=== PATIENT | male | born 2000 | race Caucasian/White ===

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

== ENCOUNTER 2023-04-11 01:45 | Emergency (ER) | payer MEDICAID, SELFPAY ==
--- NOTE | 2023-04-11 01:46 | XRR_ITS ---
PROCEDURE INFORMATION: Exam: XR Right Wrist Exam date and time: 04/11/2023 12:56 AM Age: 23 years old Clinical indication: Injury or trauma; Fall; Crushing; Wrist; Right TECHNIQUE: Imaging protocol: Radiologic exam of the right wrist. Views: 3 or more views. COMPARISON: No relevant prior studies available. FINDINGS: Bones/joints: Normal. Soft tissues: Normal. XR/XR wrist RT min 3V* [id number] IMPRESSION: No acute findings.
[2023-04-11 01:52] VITALS: BMI 50.2
[2023-04-11 01:53] VITALS: BP 203/112; PULSE 84; RESP 16; TEMP 36.6; O2SAT 98
--- NOTE | 2023-04-11 02:07 | ED_ITS ---
HPI - Extremity Problem General: Chief complaint: Extremity Problem,Nontraumatic Stated complaint: Right wrist injury Time Seen by Provider: 04/11/23 01:47 History of Present Illness: 23-year-old male patient comes in today for injury to the right wrist. Patient reports that he was running yesterday and tripped and fell catching himself outstretched arms. Patient had fractured his left wrist before it was a similar incident and was concerned he might have broken his right wrist. Patient has used a elastic wrap with some mild relief but the pain was worse tonight. Patient appears nontoxic. Patient appears in no acute distress. Review of Systems General: Reports: 10 or more systems reviewed and unremarkable except in HPI and below Musc: Reports: extremity pain PFSH ED PFSH: Social History (Updated 12/12/19 @ 09:59 by Tenisha Nelson LPN) Smoking and tobacco status: never smoked Alcohol intake: never Substance/Drug Use: never Physical Exam Const: COMMON NORMALS: alert HENMT: COMMON NORMALS: normocephalic HEAD & SCALP: normocephalic Neck/C-Spine: COMMON NORMALS: full ROM Resp: COMMON NORMALS: normal respiratory effort Cardio: COMMON NORMALS: regular rate RATE: regular rate Back/Pelvis: COMMON NORMALS: thoracic and lumbar spine normal to inspection Extremity: RIGHT UPPER EXTREMITY: Yes wrist (Mild joint line tenderness) Right wrist: Yes inspection and Yes palpation Neuro: SENSORIUM/ORIENTATION: Yes alert Skin: COMMON NORMALS: turgor normal GENERAL SKIN EXAM: turgor normal Course Vital Signs: Vital signs: Vital Signs Temperature 97.9 F 04/11/23 01:53 Pulse Rate 84 04/11/23 01:53 Respiratory Rate 16 04/11/23 01:53 Blood Pressure 203/112 04/11/23 01:53 Pulse Oximetry 98 04/11/23 01:53 Oxygen Delivery Me thod Room Air 04/11/23 01:53 MDM - Extremity (Nontraumatic) Medical Decision Making 23-year-old male patient comes in today with injury to the right wrist. On exam patient has joint line tenderness. Minimal to no swelling is noted. Distal cap refill is intact. Distal sensation is intact. Differential diagnosis includes but not limited to fracture, sprain, contusion. X-ray notes no abnormality. Reviewed exam with patient with recommendations for treatment and follow-up. Patient reported understanding and agreed to plan. Also discussed with patient his elevated blood pressure recommended follow-up with primary care in 1 week for recheck of blood pressure. Patient reports that normally his blood pressure is more in the normal range in the 130s to 140s. Patient has no other symptoms such as chest pain, shortness of breath, or other significant abnormalities to suggest further need of work-up at this time. Patient reported understanding of care plan and need for follow-up. Discharge Plan Discharge Patient Disposition: Home Clinical Impression: Right wrist sprain Qualifiers: Encounter type: initial encounter Qualified Code(s): S63.501A - Unspecified sprain of right wrist, initial encounter Ulnar nerve compression Qualifiers: Laterality: right Qualified Code(s): G56.21 - Lesion of ulnar nerve, right upper limb Condition: Stable Prescriptions: New ketorolac 10 mg tablet 10 mg PO Q6H PRN (Reason: pain) 3 Days Qty: 12 0RF Discharge Orders: Discharge ED (Routine); Ordered 04/11/23 Ordered By: Jax Thrasher Discharge Diet: Usual diet Discharge Activity: Increase activity as tolerated Patient Instructions: Wrist Sprain (ED) Activity Restrictions/Additional Instructions: Use elastic bandage as needed for pain and discomfort. Use ice packs for further pain relief. Use ketorolac tablets 10 mg every 6 hours as needed for pain. Drink plenty of water with medication. Follow-up with primary care in 3 days for recheck of blood pressure. Return to emergency department for new concerns. Coding Level of Care Code ED Medical Officer Psychiatry for Pato Rudolph
[2023-04-11] MEDS: ketorolac 10 mg Tablet PO (02:15)
[2023-04-11 02:16] VITALS: BP 163/127; PULSE 88; RESP 14; O2SAT 97
--- NOTE | 2023-04-15 13:11 | DCPLANNER ---
management manager called patient due to no primary care physician - patient declines at this time.
== END 2023-04-11 02:18 | disposition home or self-care (01) ==
PROVIDERS: Emergency Provider Nurse Practitioner Family
DX: S63.501A Unspecified sprain of right wrist, initial encounter (principal); G56.21 Lesion of ulnar nerve, right upper limb; W01.0XXA Fall on same level from slipping, tripping and stumbling without subsequent striking against object, initial encounter
CPT/HCPCS: 73110; 99283